=== PATIENT | male | born 1950 | race Caucasian/White ===

== ENCOUNTER 2017-03-07 08:13 | Day surgery (SDC) | payer OTHER, MEDICAID ==
[2017-03-07] MEDS ORDERED: ceFAZolin 2 GM/DEXTROSE 100 ML IV ONE (08:31)
[2017-03-07] MEDS ORDERED: LR 1,000 ML IV ONE (08:35)
[2017-03-07] MEDS ORDERED: LIDOCAINE 1% 2 ML INJ ID PRN (08:35)
[2017-03-07] MEDS ORDERED: BUPIVACAINE 0.5% 30 ML SDV ONE (08:35)
--- NOTE | 2017-03-07 08:47 | PDHPUP ---
History & Physical Update H&P update statement: This history and physical update is based on an assessment of the patient which was completed after admission or registration (within 24 hours), but prior to the surgery/procedure. H&P update: H&P reviewed & patient examined, no change in patient's condition since H&P completed
[2017-03-07 09:01] VITALS: PULSE 75
[2017-03-07] MEDS ORDERED: MIDAZOLAM 2 MG/2 ML VIAL IVP ONE (10:09)
--- NOTE | 2017-03-07 10:10 | PDANEPAE ---
ANE History of Present Illness Right inguinal hernia ANE Past Medical History - Cardiovascular History Hx Hypertension: No Hx Arrhythmias: No Hx Chest Pain: No Hx Coronary Artery / Peripheral Vascular Disease: No Hx CHF / Valvular Disease: No Hx Palpitations: No - Pulmonary History Hx COPD: No Hx Asthma/Reactive Airway Disease: No Hx Recent Upper Respiratory Infection: No Hx Oxygen in Use at Home: No Hx Sleep Apnea: No Sleep Apnea Screening Result - Last Documented: Positive Pulmonary History Comment: pt states he gets sob with running lately - Neurologic History Hx Cerebrovascular Accident: No Hx Seizures: No Hx Dementia: No - Endocrine History Hx Diabetes: No - Renal History Hx Renal Disorders: No - Liver History Hx Hepatic Disorders: Yes Hepatic History Comment: Hepatitis C DX'd 1997 - Neurological & Psychiatric Hx Hx Neurological and Psychiatric Disorders: No - Cancer History Hx Cancer: No - Congenital Disorder History Hx Congenital Disorders: No - GI History Hx Gastrointestinal Disorders: No Gastrointestinal History Comment: History of colonoscopy 2006 - Surgical History Prior Surgeries: Right inguinal hernia repair 1999. right cataract 12/2016. left cataract 01/2017 ANE Review of Systems - Exercise capacity METS (RN): 6 METS ANE Patient History - Allergies Allergies/Adverse Reactions: No Known Allergies Allergy (Verified 03/07/17 08:45) - Home Medications Home Medications: traZODONE 09/30/14 [Last Taken 02/24/17] Aspirin EC 81 mg (*) 1 tab PO DAILY 03/07/17 [Last Taken 03/06/17] Multivitamin 1 tab PO DAILY 03/07/17 [Last Taken 03/06/17] - NPO status NPO Since - Liquids (Date): 03/06/17 NPO Since - Liquids (Time): 21:00 NPO Since - Solids (Date): 03/06/17 NPO Since - Solids (Time): 19:00 - Smoking Hx Smoking Status: Never smoked - Family Anes Hx Family Hx Anesthesia Complications: none ANE Labs/Vital Signs - Vital Signs Blood Pressure: 124/80 Heart Rate: 75 Respiratory Rate: 16 O2 Sat (%): 95 Height: 180.34 cm Weight: 72.575 kg ANE Physical Exam - Airway Neck exam: FROM Mallampati Score: Class 2 Mouth exam: normal dental/mouth exam - Pulmonary Pulmonary: no respiratory distress - Cardiovascular Cardiovascular: regular rate and rhythym - ASA Status ASA Status: I ANE Anesthesia Plan Anesthesia Plan: general endotracheal anesthesia
[2017-03-07] MEDS ORDERED: MIDAZOLAM 2 MG/2 ML VIAL ONE (10:12)
[2017-03-07] MEDS ORDERED: ROCURONIUM 50 MG/5 ML VIAL ONE (10:14)
[2017-03-07] MEDS ORDERED: DEXAMETHASONE 4 MG/ML VIAL ONE (10:14)
[2017-03-07] MEDS ORDERED: ONDANSETRON 4 MG/2 ML VIAL ONE (10:14)
[2017-03-07] MEDS ORDERED: fentaNYL 100 MCG/2 ML INJ ONE ×3 (10:14→11:41)
[2017-03-07] MEDS ORDERED: LIDOCAINE 2% 100 MG/5 ML SYR ONE (10:14)
[2017-03-07] MEDS ORDERED: PROPOFOL 200 MG/20 ML VIAL ONE (10:15)
[2017-03-07] MEDS ORDERED: NALOXONE HCL 0.4 MG/ML INJ IVP PRN ×2 (10:48→12:32)
[2017-03-07] MEDS ORDERED: HYDROmorphONE/DILAUDID 1 MG/ML SYR IVP PRN ×2 (10:48→12:32)
[2017-03-07] MEDS ORDERED: ONDANSETRON 4 MG/2 ML VIAL IVP PRN ×2 (10:48→12:32)
[2017-03-07] MEDS ORDERED: PROMETHAZINE HCL 25 MG/ML INJ IVP PRN ×2 (10:48→12:32)
--- NOTE | 2017-03-07 11:22 | POSTOPPROG ---
Post Op Note Date of Operation: 03/07/17 Surgeon: Jhon Tovar Religious Activities Director: Libia LOWERY Anesthesiologist: Yadi Anesthesia: GET(General Endotracheal) Pre-op Diagnosis: Right inguinal hernia Post-op Diagnosis: Bilateral inguinal hernia Indication: RIH Procedure: Laproscopic bilateral hernia repairs with mesh Findings: Bilateral hernias Inf/Abcess present in the surg proc area at time of surgery?: No Depth: Deep Incisional (Fascial) EBL: Minimal
--- NOTE | 2017-03-07 11:26 | POSTANESTH ---
Post Anesthetic Evaluation Cardiovascular Status: Normal, Stable Respiratory Status: Normal, Stable Level of Consciousness/Mental Status: Can Participate in Eval Pain Control: Adequate, Prn Tx Ordered Nausea/Vomiting Control: Adequate, Prn Tx Ordered Complications Possibly Related to Anesthesia: None Noted
[2017-03-07] MEDS: fentaNYL 100 MCG/2 ML INJ IVP PRN ×2 (11:41→11:50)
[2017-03-07 12:21] VITALS: TEMP 98.2
[2017-03-07] MEDS ORDERED: fentaNYL 100 MCG/2 ML INJ IVP PRN (12:32)
[2017-03-07 12:37] VITALS: RESP 16
[2017-03-07 13:28] VITALS: BP 124/69; O2SAT 96
[2017-03-08] MEDS ORDERED: MULTIVITAMINS 1 EACH TAB PO SCH (09:00)
[2017-03-08] MEDS ORDERED: ASPIRIN EC 81 MG TAB PO SCH (09:00)
[2017-03-08] MEDS ORDERED: MULTIVITAMIN PO SCH (09:00)
[2017-03-08] MEDS ORDERED: ASPIRIN 81 MG PO SCH (09:00)
== END 2017-03-07 13:26 | disposition home or self-care (01) ==
LOC: FSGY 08:13
PROVIDERS: ATTEND Surgery
PROC: 0YUA4JZ Supplement Bilateral Inguinal Region with Synthetic Substitute, Percutaneous Endoscopic Approach (ICD-10-PCS; principal; 2017-03-07 09:45)
DX: K40.20 Bilateral inguinal hernia, without obstruction or gangrene, not specified as recurrent (principal)
CPT/HCPCS: 49650; C1727; C1781; J0690; J1100; J2001; J2250; J2405; J2704; J3010

== ENCOUNTER → 2018-12-05 | Outpatient (CLI) | payer OTHER, MEDICAID | LOC: FIMAGING 10:58 | PROVIDERS: ATTEND Allergy & Immunology | DX: J32.9 Chronic sinusitis, unspecified (principal) ==